=== PATIENT | female | born 1935 | race American Indian/Alaskan Native ===

== ENCOUNTER 2018-08-14 09:22 | Outpatient (CLI) | payer OTHER ==
--- NOTE | 2018-08-15 09:45 | Mammography Report ---
BILATERAL DIGITAL DIAGNOSTIC MAMMOGRAM with CAD and RIGHT BREAST ULTRASOUND: 08/14/18 09:22:00 CLINICAL: Known right breast cancer treated with oral chemotherapy (Arimidex). COMPARISON:09/02/16 mammogram from [facility] FINDINGS: The patient could not stand and the examination was performed with the patient in a wheelchair. The breasts are mostly fatty. A right upper outer periareolar biopsy clip correlates with the known cancer. It is located within an island of fibroglandular structures which is less prominent than on the comparison exam. No distinct mass is identified at the clip. No mass, architectural distortion or suspicious calcifications. Ultrasound of the right breast (including all four quadrants and the retroareolar area) was performed and demonstrated no mass or shadowing to correlate with the known cancer. The localizer clip at the known is not confidently identified. Ultrasound of the right axilla demonstrated several lymph nodes with central fat and borderline thick cortex of 3.8 mm. IMPRESSION: A good response to chemotherapy with no distinct mass remaining on the mammogram or by ultrasound. BI-RADS CATEGORY: 6 -- Known Cancer COMMENT: 1. Dense breast tissue, i.e., adenosis, fibrocystic changes, etc., may obscure an underlying neoplasm. 2. Approximately 10% of cancers are not detected with mammography. 3. A negative mammography report should not delay biopsy if a clinically suspicious mass is present. COMMENT: Patient follow-up letters are generated by our [employer] application.
== END 2018-08-14 09:23 | disposition home or self-care (01) ==
LOC: SPVWC 09:22
PROVIDERS: ATTEND Surgery
DX: C50.911 Malignant neoplasm of unspecified site of right female breast (principal); Z92.21 Personal history of antineoplastic chemotherapy
CPT/HCPCS: 77066

== ENCOUNTER 2019-03-04 10:17 | Outpatient (CLI) | payer OTHER ==
--- NOTE | 2019-03-04 14:51 | Mammography Report ---
RIGHT DIGITAL DIAGNOSTIC MAMMOGRAM WITH CAD 03/04/2019 RIGHT LIMITED BREAST ULTRASOUND INDICATION: 83-year-old treated medically for a right breast cancer. TECHNIQUE: Digital right mammographic imaging was performed. Limited ultrasound was performed. This examination was interpreted with the benefit of Computer-Aided Detection (CAD) analysis. COMPARISON: 08/14/2018 FINDINGS: Breast Density: The breast is almost entirely fatty. MAMMOGRAPHIC FINDINGS: There is no evidence of dominant mass, suspicious calcifications or architectu ral distortion in the right breast. A retroareolar biopsy clip. ULTRASOUND FINDINGS: Targeted ultrasound evaluation was performed of the area of interest. Ultrasou nd performed in the retroareolar area from 11-1 o'clock and demonstrated no mass or suspicious shadow ing. IMPRESSION: No mammographic evidence of malignancy and negative right breast ultrasound. Follow up recommendation: Routine yearly BI-RADS Category 6: Known Biopsy-Proven Malignancy. A "normal" or negative report should not discourage follow up or biopsy of a clinically significant f inding. A written summary of these findings will be mailed to the patient. The patient will be entered into a mammography reporting system which will generate a reminder letter for the patient's next appointmen t at the appropriate interval. According to the [employer], yearly mammograms are recommended starting at age 40 and continuing as long as a woman is in good health. Breast MRI is recommended for women with an grzegorz roximately 20-25% or greater lifetime risk of breast cancer, including women with a strong family his tory of breast or ovarian cancer and women who have been treated for Hodgkin's disease. Signer Name: David Steward MD Signed: 03/04/2019 2:46 PM Workstation Name: [id number]
== END 2019-03-04 10:18 | disposition home or self-care (01) ==
LOC: SPVWC 10:17
PROVIDERS: ATTEND Surgery
DX: C50.912 Malignant neoplasm of unspecified site of left female breast (principal); R92.8 Other abnormal and inconclusive findings on diagnostic imaging of breast

== ENCOUNTER 2019-07-16 08:26 | Outpatient (CLI) | payer MEDICARE, OTHER ==
--- NOTE | 2019-07-16 09:50 | Mammography Report ---
DIGITAL DIAGNOSTIC MAMMOGRAM WITH CAD, -- 07/16/2019 INDICATION: Patient has known right breast cancer on medical management. TECHNIQUE: Digital bilateral mammographic imaging was performed. This examination was interpreted with the benefit of Computer-aided Detection analysis. COMPARISON: Prior mammograms 03/04/2019 and 08/14/2018 FINDINGS: Breast Density: There are scattered areas of fibroglandular density. There is no evidence of dominant mass, suspicious calcifications or architectural distortion in the l eft breast. There are stable benign-appearing calcifications with scattered distribution seen in both breasts. There is a stable approximately 1.4 cm focal asymmetric density with associated biopsy clip in the subareolar right breast at site of biopsy-proven malignancy. There has been no significant ch ricardo compared with the prior examination. IMPRESSION: 1. Stable focal asymmetric density with associated biopsy clip at site of biopsy-proven malignancy in the right breast. There has been no significant change compared with the prior examination. Follow up recommendation: Routine yearly BI-RADS Category 6: Known Biopsy-Proven Malignancy. A "normal" or negative report should not discourage follow up or biopsy of a clinically significant f inding. A written summary of these findings will be mailed to the patient. The patient will be entered into a mammography reporting system which will generate a reminder letter for the patient's next appointmen t at the appropriate interval. According to the [employer], yearly mammograms are recommended starting at age 40 and continuing as long as a woman is in good health. Breast MRI is recommended for women with an grzegorz roximately 20-25% or greater lifetime risk of breast cancer, including women with a strong family his tory of breast or ovarian cancer and women who have been treated for Hodgkin's disease. Signer Name: Gabbie Roberto MD Signed: 07/16/2019 9:46 AM Workstation Name: [id number]
--- NOTE | 2019-07-16 10:31 | Ultrasound Report ---
EXAMINATION: Right Complete Breast Ultrasound, 07/16/2019 INDICATION: F/U mammogram, hx breast cancer COMPARISON: Mammogram same day, and prior mammogram and ultrasound 03/04/2019 FINDINGS: Complete sonographic evlauation of all 4 quadrants and retroareolar region was performed. Complete ultrasound of the right breast reveals a small area of somewhat linear hypoechoic tissue in the 12:00 subareolar position measuring up to 1.1 cm, likely corresponding with the focal asymmetric density seen mammographically at the site of biopsy-proven malignancy in the right breast. No additio nal suspicious cystic or solid lesion identified within the right breast. There is a prominent right axillary lymph node versus conglomerate of adjacent axillary lymph nodes measuring up to 1.5 cm with borderline cortical thickness measuring up to 3 mm. IMPRESSION: 1. Irregular hypoechoic tissue in the 12:00 subareolar right breast corresponds with site of biopsy-p roven malignancy. 2. Mildly prominent right axillary lymph node is indeterminate and may be reactive or metastatic. Follow up recommendation: Routine yearly BI-RADS Category 6: Known Biopsy-Proven Malignancy. Signer Name: Gabbie Roberto MD Signed: 07/16/2019 10:27 AM Workstation Name: [id number]
== END 2019-07-16 08:27 | disposition home or self-care (01) ==
LOC: SPVWC 08:26
PROVIDERS: ATTEND Surgery
DX: C50.411 Malignant neoplasm of upper-outer quadrant of right female breast (principal); N64.89 Other specified disorders of breast; R59.0 Localized enlarged lymph nodes
CPT/HCPCS: 77066

== ENCOUNTER 2020-01-23 10:40 | Outpatient (CLI) | payer MEDICARE ==
--- NOTE | 2020-01-23 11:43 | Mammography Report ---
DIGITAL DIAGNOSTIC MAMMOGRAM WITH CAD, WITH TOMOSYNTHESIS -- 01/23/2020 INDICATION: Follow-up of right breast cancer. Patient currently undergoing chemotherapy. TECHNIQUE: Digital right mammographic imaging was performed. This examination was interpreted with the benefit of Computer-aided Detection analysis. COMPARISON: 03/04/2019 FINDINGS: Breast Density: There are scattered areas of fibroglandular density. A focal asymmetry is again seen along the 11-12:00 position anterior depth of the right breast with a n immediately adjacent biopsy clip. No other significant abnormality is noted. IMPRESSION: Stable appearance of the right breast compared to 03/04/2019. Recommended Follow-Up: Routine yearly BI-RADS Category 6: Known Biopsy-Proven Malignancy. A "normal" or negative report should not discourage follow up or biopsy of a clinically significant f inding. A written summary of these findings will be mailed to the patient. The patient will be entered into a mammography reporting system which will generate a reminder letter for the patient's next appointmen t at the appropriate interval. According to the [employer], yearly mammograms are recommended starting at age 40 and continuing as long as a woman is in good health. Breast MRI is recommended for women with an grzegorz roximately 20-25% or greater lifetime risk of breast cancer, including women with a strong family his tory of breast or ovarian cancer and women who have been treated for Hodgkin's disease. Signer Name: Mohit Bach MD Signed: 01/23/2020 11:39 AM Workstation Name: [email or web address]
--- NOTE | 2020-01-23 14:19 | Mammography Report ---
Please see the report for accession number [id number]. Signer Name: Mohit Bach MD Signed: 01/23/2020 2:14 PM Workstation Name: [id number]
== END 2020-01-23 10:41 | disposition home or self-care (01) ==
LOC: SPVWC 10:40
PROVIDERS: ATTEND Surgery
DX: C50.411 Malignant neoplasm of upper-outer quadrant of right female breast (principal); N64.89 Other specified disorders of breast
CPT/HCPCS: 77065; G0279

== ENCOUNTER 2020-07-20 09:51 | Outpatient (CLI) | payer MEDICARE ==
--- NOTE | 2020-07-20 14:30 | Mammography Report ---
DIGITAL DIAGNOSTIC MAMMOGRAM WITH CAD , 07/20/2020 CLINICAL INFORMATION / INDICATION: [facility] with biopsy-pro[facility] TECHNIQUE: Digital bilateral mammographic imaging was performed. This examination was interpreted with the benefit of Computer-aided Detection analysis. COMPARISON: 01/23/2020, 07/16/2019 FINDINGS: Breast Density: There are scattered areas of fibroglandular density. No dominant mass, suspicious calcifications or architectural distortion in the left breast. There continues to be 14 mm focal asymmetric density containing biopsy clip in the right subareolar b reast, unchanged from the most recent mammogram of 01/23/2020. This is the biopsy-proven malignancy. Overall, no significant interval change in the appearance of the mammogram. IMPRESSION: Stable appearance of biopsy-proven malignancy in the right subareolar breast. No new find ings. Follow up recommendation: Continued surgical consultation. BI-RADS Category 6: Known Biopsy-Proven Malignancy. A "normal" or negative report should not discourage follow up or biopsy of a clinically significant f inding. A written summary of these findings will be mailed to the patient. The patient will be entered into a mammography reporting system which will generate a reminder letter for the patient's next appointmen t at the appropriate interval. According to the [employer], yearly mammograms are recommended starting at age 40 and continuing as long as a woman is in good health. Breast MRI is recommended for women with an grzegorz roximately 20-25% or greater lifetime risk of breast cancer, including women with a strong family his tory of breast or ovarian cancer and women who have been treated for Hodgkin's disease. Signer Name: Melody Andres MD Signed: 07/20/2020 2:25 PM Workstation Name: [id number]
== END 2020-07-20 09:52 | disposition home or self-care (01) ==
LOC: SPVWC 09:51
PROVIDERS: ATTEND Surgery
DX: R92.8 Other abnormal and inconclusive findings on diagnostic imaging of breast (principal)
CPT/HCPCS: 77066